=== PATIENT | male | born 1985 | race Caucasian/White ===

== ENCOUNTER 2017-12-26 18:57 | Emergency (ER) | payer SELFPAY ==
[~2017-12-26] VITALS: Ht 180.3 cm; Wt 88.5 kg
[~2017-12-26 18:57] MED LIST: ADVI200C9 PO; BACT PO; LEVA750T PO
[2017-12-26 19:03] VITALS: BP 137/65; PULSE 90; RESP 16; TEMP 97.6; O2SAT 99
--- NOTE | 2017-12-26 19:28 | PD ---
HPI Chief Complaint: Chest Pain Time Seen by Provider: 19:14 Travel History International Travel<30 days: No Contact w/Intl Traveler<30days: No Traveled to known affect area: No History of Present Illness HPI Patient comes emerge from complaining of right-sided chest pain ongoing for 3 days. Patient reports pain is sharp stabbing pain that is worse with lying flat improves with standing and leaning forward. Patient denies anything like this in the past. Patient denies any known trauma, shortness of breath, nausea , vomiting, numbness or tingling anywhere, abdominal pain, fevers, family history of heart disease, diaphoresis, back pain, or dizziness. 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 Denies any radiation of pain. Patient reports sometimes when he moves different ways he will make it better or worse as well. Severity moderate. PFSH Past Medical History Autoimmune Disease: No Blood Disorders: No Anxiety: Yes Depression: Yes Cancer: No Cardiovascular Problems: No Chemotherapy: No Endocrine: No Glaucoma: No Genitourinary: No Immune Disorder: No Musculoskeletal: No Neurologic: No Psychiatric: Yes (Polysubstance abuse) Reproductive: No Respiratory: No Radiation Therapy: No Tetanus Vaccination: > 5 Years Past Surgical History Abdominal Surgery: No AICD: No Arteriovenous Shunt: No Cardiac Surgery: No Ear Surgery: No Endocrine Surgery: No Eye Surgery: No Genitourinary Surgery: No Gynecologic Surgery: No Insulin Pump: No Joint Replacement: No Oral Surgery: No Pacemaker: No Thoracic Surgery: No Tonsillectomy: Yes (T&A) Other Surgery: Yes Social History Alcohol Use: No (quit) Tobacco Use: Yes (1/2 PACK CIGARETTES DAILY) Substance Use: Yes (Heroin last used today.) Allergies-Medications (Allergen,Severity, Reaction): Coded Allergies: penicillin G (Verified Allergy, Mild, Rash, 12/26/17) Patient states he is not allergic to Penicillin and has taken it in the past. Reported Meds & Prescriptions Reported Meds & Active Scripts Active Prilosec (Omeprazole Magnesium) 20 Mg Tab 1 Tab PO DAILY Ibuprofen 600 Mg Tab 600 Mg PO Q6H Review of Systems Except as stated in HPI: all other systems reviewed are Neg Physical Exam Narrative GENERAL: Well-developed, well nourished, in mild distress, and non-ill appearing. SKIN: Focused skin assessment warm and dry. HEAD: Atraumatic. Normocephalic. EYES: Pupils equal and round. EOMI. No scleral icterus. No injection or drainage. ENT: No nasal bleeding or discharge. Mucous membranes pink and moist. NECK: Trachea midline. No JVD. Supple. No nuclear rigidity. CARDIOVASCULAR: Regular rate and rhythm. No murmur appreciated. RESPIRATORY: No accessory muscle use. No respiratory distress. Clear to auscultation. Breath sounds equal bilaterally. GASTROINTESTINAL: Abdomen soft, non-tender, nondistended, and no guarding. Hepatic and splenic margins not palpable. No pulsatile mass. MUSCULOSKELETAL: No obvious deformities. No clubbing. No cyanosis. No edema. Full range of motion. NEUROLOGICAL: Awake and alert. No obvious cranial nerve deficits. Motor grossly within normal limits. Normal speech. PSYCHIATRIC: Appropriate mood and affect; insight and judgment normal. Data Data Last Documented VS Vital Signs Date Time Temp Pulse Resp B/P (MAP) Pulse Ox O2 Delivery O2 Flow Rate FiO2 12/26/17 21:14 Automatic Cuff 12/26/17 19:41 84 18 96 Room Air 12/26/17 19:03 97.6 Orders Orders Electrocardiogram (12/26/17 19:19) Basic Metabolic Panel (Bmp) (12/26/17 19:19) Ckmb (Isoenzyme) Profile (12/26/17 19:19) Complete Blood Count With Diff (12/26/17 19:19) Magnesium (Mg) (12/26/17 19:19) Prothrombin Time / Inr (Pt) (12/26/17 19:19) Act Partial Throm Time (Ptt) (12/26/17 19:19) Troponin I (12/26/17 19:19) Ecg Monitoring (12/26/17 19:19) Bilateral Bp Monitoring (12/26/17 19:19) Iv Access Insert/Monitor (12/26/17 19:19) Oximetry (12/26/17 19:19) Oxygen Administration (12/26/17 19:19) Sodium Chloride 0.9% Flush (Ns Flush) (12/26/17 19:30) Chest, Pa & Lat (12/26/17 19:19) Ketorolac Inj (Toradol Inj) (12/26/17 19:30) Westergren Sedimentation Rate (12/26/17 19:19) C-Reactive Protein (Crp) (12/26/17 19:19) Ed Poc Ultrasound (12/26/17 ) CKMB (12/26/17 19:26) CKMB% (12/26/17 19:26) Ed Discharge Order (12/26/17 21:09) Mandatory Outpatient Referral (12/26/17 21:09) Labs Laboratory Tests Test 12/26/17 19:26 White Blood Count 6.1 TH/MM3 Red Blood Count 4.61 MIL/MM3 Hemoglobin 13.7 GM/DL Hematocrit 39.9 % Mean Corpuscular Volume 86.5 FL Mean Corpuscular Hemoglobin 29.7 PG Mean Corpuscular Hemoglobin Concent 34.3 % Red Cell Distribution Width 13.1 % Platelet Count 252 TH/MM3 Mean Platelet Volume 9.3 FL Neutrophils (%) (Auto) 60.6 % Lymphocytes (%) (Auto) 26.3 % Monocytes (%) (Auto) 9.0 % Eosinophils (%) (Auto) 3.9 % Basophils (%) (Auto) 0.2 % Neutrophils # (Auto) 3.7 TH/MM3 Lymphocytes # (Auto) 1.6 TH/MM3 Monocytes # (Auto) 0.5 TH/MM3 Eosinophils # (Auto) 0.2 TH/MM3 Basophils # (Auto) 0.0 TH/MM3 CBC Comment DIFF FINAL Differential Comment Erythrocyte Sedimentation Rate 9 mm/hr Prothrombin Time 11.1 SEC Prothromb Time International Ratio 1.1 RATIO Activated Partial Thromboplast Time 25.2 SEC Blood Urea Nitrogen 7 MG/DL Creatinine 0.95 MG/DL Random Glucose 120 MG/DL Calcium Level 8.9 MG/DL Magnesium Level 1.9 MG/DL Sodium Level 138 MEQ/L Potassium Level 4.0 MEQ/L Chloride Level 101 MEQ/L Carbon Dioxide Level 25.4 MEQ/L Anion Gap 12 MEQ/L Estimat Glomerular Filtration Rate 91 ML/MIN Total Creatine Kinase 211 U/L Creatine Kinase MB 1.6 NG/ML Troponin I LESS THAN 0.02 NG/ML C-Reactive Protein 1.60 MG/DL MDM Medical Decision Making Medical Screen Exam Complete: Yes Emergency Medical Condition: Yes Interpretation(s) EKG reviewed by Dr. Mane shows sinus rhythm ventricular rate of 67. No STEMI. Differential Diagnosis Pericarditis, endocarditis, acute coronary syndrome, pneumonia, pneumothorax, musculoskeletal pain Narrative Course Patient in no obvious distress upon re-evaluation. Reports improvement of symptoms status post IV Toradol. All pertinent laboratory/Radiology result(s) discussed with patient. Discussed patient with Dr. Mane, who saw and evaluated the patient and is in agreement with plan of care and disposition. Any questions/concerns in reference to patient diagnosis/condition discussed and clarified prior to patient's discharge. Reinforced sheer importance of close follow up with patient's primary physician or primary care clinic and/or net developer contract. Mandatory referral was placed. Instructed patient to return to ED immediately, if symptoms return/worsen. Patient showed understanding of above instructions. Further instructions and recommendations were detailed in discharge paperwork. Patient ambulated without difficulty out of ED at discharge. Diagnosis Primary Impression: Pericarditis Qualified Codes: I30.9 - Acute pericarditis, unspecified Referrals: [facility] Patient Instructions: Acute Pericarditis (ED), General Instructions Departure Forms: Work Release Enter return to work date: December 29, 2017 Additional Instructions: Follow-up with your primary care physician and/or net developer contract next week for reevaluation. Take all medication as prescribed. Avoid strenuous exercise until symptoms resolve. Return to the emergency department if symptoms get worse. Med/Other Pt SpecificInfo: Prescription(s) given Scripts Omeprazole Magnesium (Prilosec) 20 Mg Tab 1 TAB PO DAILY, #30 Prov: Robbi Mane MD 12/26/17 Ibuprofen (Ibuprofen) 600 Mg Tab 600 MG PO Q6H, #40 TAB 0 Refills Prov: Robbi Mane MD 12/26/17 Disposition: 01 DISCHARGE HOME Condition: Stable Marco A Monroe December 26, 2017 19:28
[2017-12-26] MEDS ORDERED: SODIUM CHLORIDE 0.9% FLUSH 10 ML FLUSH IVF PRN (19:30)
[2017-12-26] MEDS ORDERED: KETOROLAC TROMETHAMINE 30 MG/ML (IVP) VIAL IV PUSH ONE (19:30)
[2017-12-26 19:41] VITALS: BP 128/78; PULSE 84; RESP 18; O2SAT 96
[2017-12-26 20:03] LABS: INTERNATIONAL NORMALIZED RATIO 1.1 RATIO; PROTHROMBIN TIME - PATIENT 11.1 SEC (9.8-11.6)
[2017-12-26 20:05] LABS: AUTOMATED NEUTROPHIL # 3.7 TH/MM3 (1.8-7.7); BASOPHIL % 0.2 % (0.0-2.0); EOSINOPHIL # 0.2 TH/MM3 (0-0.4); EOSINOPHIL % 3.9 % (0.0-4.0); HEMATOCRIT 39.9 % (39.0-51.0); HEMOGLOBIN 13.7 GM/DL (13.0-17.0); LYMPH % 26.3 % (9.0-44.0); LYMPHOCYTE # 1.6 TH/MM3 (1.0-4.8); MEAN CELL VOLUME 86.5 FL (80.0-100.0); MEAN CORPUSCULAR HEMOGLOBIN 29.7 PG (27.0-34.0); MEAN CORPUSCULAR HGB CONC 34.3 % (32.0-36.0); MEAN PLATELET VOLUME 9.3 FL (7.0-11.0); MONOCYTE # 0.5 TH/MM3 (0-0.9); NEUT % 60.6 % (16.0-70.0); PLATELET COUNT 252 TH/MM3 (150-450); RED BLOOD COUNT 4.61 MIL/MM3 (4.50-5.90); RED CELL DISTRIBUTION WIDTH 13.1 % (11.6-17.2); WHITE BLOOD COUNT 6.1 TH/MM3 (4.0-11.0)
--- NOTE | 2017-12-26 20:07 | RADRPT ---
EXAM DATE/TIME: 12/26/2017 19:40 [facility] COMPARISON: No previous studies available for comparison. INDICATIONS : Patient complains of right sided chest pain. No known injury. MEDICAL HISTORY : None. SURGICAL HISTORY : None. ENCOUNTER: Initial ACUITY: 1 day PAIN SCORE: 7/10 LOCATION: chest FINDINGS: PA and lateral views of the chest demonstrate the lungs to be symmetrically aerated without evidence of mass, infiltrate or effusion. The cardiomediastinal contours are unremarkable. Osseous structure s are intact. CONCLUSION: No acute disease. Rao Mcdonald MD on December 26, 2017 at 20:04 Board Certified Radiologist. This report was verified electronically.
[2017-12-26 20:21] LABS: BICARBONATE 25.4 MEQ/L (21.0-32.0); BLOOD UREA NITROGEN 7 MG/DL (7-18); CALCIUM 8.9 MG/DL (8.5-10.1); CHLORIDE 101 MEQ/L (98-107); CREATININE 0.95 MG/DL (0.60-1.30); GLOMERULAR FILTRATION RATE 91 ML/MIN (>89); GLUCOSE,RANDOM 120 MG/DL (74-106); MAGNESIUM 1.9 MG/DL (1.5-2.5); SODIUM (NA) 138 MEQ/L (136-145)
[2017-12-26 20:22] LABS: TROPONIN I LESS THAN 0.02 NG/ML (0.02-0.05)
[2017-12-26] MEDS ORDERED: PRIL20TA2 PO (21:05)
[2017-12-26] MEDS ORDERED: IBUP-232 PO (21:05)
--- NOTE | 2017-12-26 21:47 | PD ---
Data Data Last Documented VS Vital Signs Date Time Temp Pulse Resp B/P (MAP) Pulse Ox O2 Delivery O2 Flow Rate FiO2 12/26/17 21:14 Automatic Cuff 12/26/17 19:41 84 18 96 Room Air 12/26/17 19:03 97.6 Orders Orders Electrocardiogram (12/26/17 19:19) Basic Metabolic Panel (Bmp) (12/26/17 19:19) Ckmb (Isoenzyme) Profile (12/26/17 19:19) Complete Blood Count With Diff (12/26/17 19:19) Magnesium (Mg) (12/26/17 19:19) Prothrombin Time / Inr (Pt) (12/26/17 19:19) Act Partial Throm Time (Ptt) (12/26/17:19) Troponin I (12/26/17:19) Ecg Monitoring (12/26/17 19:19) Bilateral Bp Monitoring (12/26/17 19:19) Iv Access Insert/Monitor (12/26/17 19:19) Oximetry (12/26/17 19:19) Oxygen Administration (12/26/17 19:19) Sodium Chloride 0.9% Flush (Ns Flush) (12/26/17 19:30) Chest, Pa & Lat (12/26/17 19:19) Ketorolac Inj (Toradol Inj) (12/26/17 19:30) Westergren Sedimentation Rate (12/26/17 19:19) C-Reactive Protein (Crp) (12/26/17 19:19) Ed Poc Ultrasound (12/26/17 ) CKMB (12/26/17 19:26) CKMB% (12/26/17 19:26) Ed Discharge Order (12/26/17 21:09) Mandatory Outpatient Referral (12/26/17 21:09) Labs Laboratory Tests Test 12/26/17 19:26 White Blood Count 6.1 TH/MM3 Red Blood Count 4.61 MIL/MM3 Hemoglobin 13.7 GM/DL Hematocrit 39.9 % Mean Corpuscular Volume 86.5 FL Mean Corpuscular Hemoglobin 29.7 PG Mean Corpuscular Hemoglobin Concent 34.3 % Red Cell Distribution Width 13.1 % Platelet Count 252 TH/MM3 Mean Platelet Volume 9.3 FL Neutrophils (%) (Auto) 60.6 % Lymphocytes (%) (Auto) 26.3 % Monocytes (%) (Auto) 9.0 % Eosinophils (%) (Auto) 3.9 % Basophils (%) (Auto) 0.2 % Neutrophils # (Auto) 3.7 TH/MM3 Lymphocytes # (Auto) 1.6 TH/MM3 Monocytes # (Auto) 0.5 TH/MM3 Eosinophils # (Auto) 0.2 TH/MM3 Basophils # (Auto) 0.0 TH/MM3 CBC Comment DIFF FINAL Differential Comment Erythrocyte Sedimentation Rate 9 mm/hr Prothrombin Time 11.1 SEC Prothromb Time International Ratio 1.1 RATIO Activated Partial Thromboplast Time 25.2 SEC Blood Urea Nitrogen 7 MG/DL Creatinine 0.95 MG/DL Random Glucose 120 MG/DL Calcium Level 8.9 MG/DL Magnesium Level 1.9 MG/DL Sodium Level 138 MEQ/L Potassium Level 4.0 MEQ/L Chloride Level 101 MEQ/L Carbon Dioxide Level 25.4 MEQ/L Anion Gap 12 MEQ/L Estimat Glomerular Filtration Rate 91 ML/MIN Total Creatine Kinase 211 U/L Creatine Kinase MB 1.6 NG/ML Troponin I LESS THAN 0.02 NG/ML C-Reactive Protein 1.60 MG/DL [facility] Supervised Visit with ARRON: Yes Narrative Course The history, exam, and medical decision-making in the associated mid-level provider note were completed with my assistance. I reviewed and agree with the findings presented. I attest that I had a [id number] encounter with the patient on the same day, and personally performed and documented my assessment and findings in the medical record. *My assessment and Findings: Is a 32-year-old man who presents to the emergency department complaining of 3 days of chest pain, positional, worse with exertion, constant. Active IV drug use but no fevers chills night sweats or other infectious symptoms. No murmur on exam. I did a bedside ultrasound I do not see any definite effusion. EKG may show little bit of evidence of pericarditis but nothing definitive. He looks well. Workups otherwise unremarkable. No evidence of PE. This point recommend supportive treatment with NSAIDs for likely pericarditis versus less likely musculoskeletal chest pain. Procedures Procedure Narrative [id number] ultrasound: Focused transthoracic ultrasound was performed by me at the bedside to evaluate for the presence or absence of pericardial effusion. No pericardial effusion was identified. Incidental note is made of normal EF. Grossly Diagnosis Primary Impression: Pericarditis Referrals: [facility] Patient Instructions: General Instructions, Acute Pericarditis (ED) Departure Forms: Work Release Enter return to work date: Additional Instruction: Follow-up with your primary care physician and/or cutting room supervisor next week for reevaluation. Take all medication as prescribed. Avoid strenuous exercise until symptoms resolve. Return to the emergency department if symptoms get worse. Scripts Omeprazole Magnesium (Prilosec) 20 Mg Tab 1 TAB PO DAILY, #30 Prov: Robbi Mane MD 12/26/17 Ibuprofen (Ibuprofen) 600 Mg Tab 600 MG PO Q6H, #40 TAB 0 Refills Prov: Robbi Mane MD 12/26/17 Disposition: 01 DISCHARGE HOME Condition: Stable Robbi Mane MD December 26, 2017 21:47
--- NOTE | 2017-12-27 13:48 | EKG ---
Date Performed: 12/26/2017 Time Performed: 19:19:22 PTAGE: 32 years EKG: Sinus rhythm NORMAL ECG PREVIOUS TRACING : 12/01/2000 09.15 Since the previous tracing, no significant change noted DOCTOR: Ulises Montemayor Interpretating Date/Time 12/27/2017 13:48:05
== END 2017-12-26 21:22 | disposition home or self-care (01) ==
LOC: NEPE 18:57
DX: I31.9 Disease of pericardium, unspecified (principal); F41.9 Anxiety disorder, unspecified; F32.9 Major depressive disorder, single episode, unspecified; F17.200 Nicotine dependence, unspecified, uncomplicated; F11.90 Opioid use, unspecified, uncomplicated; Z88.0 Allergy status to penicillin; Z79.899 Other long term (current) drug therapy
CPT/HCPCS: 71046; 80048; 82550; 82552; 83735; 84484; 85025; 85610; 85652; 85730; 86140; 93005; 96374; 99285; J1885